=== PATIENT | female | born 1960 | race Caucasian/White ===

== ENCOUNTER 2018-04-23 02:28 | Inpatient (IN) | payer BC ==
[~2018-04-23] VITALS: Ht 165.1 cm; Wt 73.5 kg
[2018-04-23] VITALS (12 sets, daily range): BP systolic 158–184; BP diastolic 84–109; Ht 165.1 cm; Wt 73.5 kg
[2018-04-23] MEDS ORDERED: BACL-1 PO ×2 (02:35→05:37)
[2018-04-23] MEDS ORDERED: CELE-1 PO (02:36)
[2018-04-23] MEDS ORDERED: GABA-506 PO (02:36)
--- NOTE | 2018-04-23 02:36 | ER Report ---
History and Physical Time Seen By MD: 02:31 HPI/ROS CHIEF COMPLAINT: Altered mental status, suspected medication overdose HISTORY OF PRESENT ILLNESS: Patient is a 57-year-old female here with complaints of altered mental status after being found by patient's in a truck cab. suspects that the patient overdosed on her medications which include baclofen, gabapentin, celecoxib which she takes due to an old neck injury. Medications were last filled Patient is not interactive, is disoriented and does not answer questions. She does have dried blood around her lips and was suspected to have bitten herself. Patient reportedly had a similar episode occur several months ago. Patient is foul-smelling, unkempt with poor hygiene. REVIEW OF SYSTEMS: Not able to obtain due to patient's mental status Allergies: Coded Allergies: No Known Drug Allergies (Unverified , 04/23/18) Home Meds Reported Medications Baclofen (BACLOFEN) 10 Mg Tablet, 5 MG PO TID, #15 TAB 04/23/18 Celecoxib (CELEBREX) 200 Mg Capsule, 200 MG PO QDAY, CAPSULE 04/23/18 Gabapentin (GABAPENTIN) 800 Mg Tablet, 800 MG PO TID 04/23/18 Discontinued Reported Medications Baclofen (BACLOFEN) 10 Mg Tablet, 10 MG PO TID, #30 TAB 04/23/18 Constitutional Vital Sign - Last 24 Hours 04/23/18 04/23/18 04/23/18 04/23/18 02:31 02:43 03:13 03:18 Temp 98.8 Pulse 117 111 123 B/P (MAP) 145/66 177/101 (126) Pulse Ox 90 91 96 O2 Delivery Room Air 04/23/18 04/23/18 04/23/18 05:28 06:02 06:23 Pulse 100 92 103 B/P (MAP) 180/101 (127) 173/103 (126) 172/98 (122) Pulse Ox 99 99 98 O2 Delivery Nasal Cannula Nasal Cannula Nasal Cannula Physical Exam General Appearance: Confused, disoriented, poor hygiene, foul-smelling Eyes: Dilated, responsive ENT, Mouth: Dry blood surrounding mouth Respiratory: There are no retractions, lungs are clear to auscultation. Cardiovascular: Regular rate and rhythm. Gastrointestinal: Abdomen is soft and non tender, no masses, bowel sounds normal. Neurological: Confused, disoriented, moving all extremities Skin: Warm and dry, no rashes. Musculoskeletal: Neck is supple DIFFERENTIAL DIAGNOSIS: After history and physical exam differential diagnosis was considered for medication overdose, hypoxia, trauma, intracranial bleed, electrolyte imbalance, hyperammonemia Medical Decision Making Data Points Result Diagram: 04/25/18 0540 04/25/18 0540 Laboratory Hematology Test 04/23/18 02:45 04/23/18 02:52 04/23/18 04:19 Blood Gas Puncture Site Left radial Blood Gas Patient Temperature 98.8 DEGREES Arterial Blood pH 7.46 (7.35-7.45) Arterial Blood Partial Pressure CO2 38 mmHg (32-37) Arterial Blood Partial Pressure O2 160 mmHg (60-80) Arterial Blood HCO3 27 mmol/L (20-26) Arterial Blood Oxygen Saturation 100 % (92-100) Arterial Blood Base Excess 3.0 mmol/L Anton Test Acceptable Carboxyhemoglobin 1.6 % (< 5.0) Oxygen Liters/Minute 4l ra Ammonia < 9 UMOL/L (9-33) Thyroid Stimulating Hormone (TSH) 0.53 uIU/ml (0.46-4.68) Salicylates Level < 10 mg/L Salicylate Last Dose Date unknown Acetaminophen Level < 10 ug/ml Serum Alcohol < 10 mg/dl Whole Blood Glucose 163 mg/DL (75-110) Urine Color Yellow Urine Clarity Clear Urine pH 6.0 pH (4.8-9.5) Urine Specific [place] 1.023 Urine Protein 100 mg/dL (NEGATIVE) Urine Glucose (UA) 50 mg/dL (NEGATIVE) Urine Ketones Negative mg/dL (NEGATIVE) Urine Blood Moderate (NEGATIVE) Urine Nitrite Negative (NEGATIVE) Urine Bilirubin Negative (NEGATIVE) Urine Urobilinogen Negative mg/dL (0.2-1.9) Urine Leukocyte Esterase Negative (NEGATIVE) Urine RBC 12 /HPF (0-2/HPF) Urine WBC 4 /HPF (0-5/HPF) Urine Squamous Epithelial Cells Few /LPF (NONE-FEW) Urine Bacteria Negative /HPF (NONE-FEW) Urine Mucus None /HPF (NONE-FEW) Urine Opiates Screen Negative Urine Barbiturates Screen Negative Ur Tricyclic Antidepressants Screen Negative Urine Phencyclidine Screen Negative Urine Amphetamines Screen Negative Urine Benzodiazepines Screen Negative Urine Cocaine Screen Negative Urine Cannabinoids Screen Negative Chemistry Test 04/23/18 02:45 04/23/18 02:52 04/23/18 04:19 Blood Gas Puncture Site Left radial Blood Gas Patient Temperature 98.8 DEGREES Arterial Blood pH 7.46 (7.35-7.45) Arterial Blood Partial Pressure CO2 38 mmHg (32-37) Arterial Blood Partial Pressure O2 160 mmHg (60-80) Arterial Blood HCO3 27 mmol/L (20-26) Arterial Blood Oxygen Saturation 100 % (92-100) Arterial Blood Base Excess 3.0 mmol/L Anton Test Acceptable Carboxyhemoglobin 1.6 % (< 5.0) Oxygen Liters/Minute 4l ra Ammonia < 9 UMOL/L (9-33) Thyroid Stimulating Hormone (TSH) 0.53 uIU/ml (0.46-4.68) Salicylates Level < 10 mg/L Salicylate Last Dose Date unknown Acetaminophen Level < 10 ug/ml Serum Alcohol < 10 mg/dl Whole Blood Glucose 163 mg/DL (75-110) Urine Color Yellow Urine Clarity Clear Urine pH 6.0 pH (4.8-9.5) Urine Specific [place] 1.023 Urine Protein 100 mg/dL (NEGATIVE) Urine Glucose (UA) 50 mg/dL (NEGATIVE) Urine Ketones Negative mg/dL (NEGATIVE) Urine Blood Moderate (NEGATIVE) Urine Nitrite Negative (NEGATIVE) Urine Bilirubin Negative (NEGATIVE) Urine Urobilinogen Negative mg/dL (0.2-1.9) Urine Leukocyte Esterase Negative (NEGATIVE) Urine RBC 12 /HPF (0-2/HPF) Urine WBC 4 /HPF (0-5/HPF) Urine Squamous Epithelial Cells Few /LPF (NONE-FEW) Urine Bacteria Negative /HPF (NONE-FEW) Urine Mucus None /HPF (NONE-FEW) Urine Opiates Screen Negative Urine Barbiturates Screen Negative Ur Tricyclic Antidepressants Screen Negative Urine Phencyclidine Screen Negative Urine Amphetamines Screen Negative Urine Benzodiazepines Screen Negative Urine Cocaine Screen Negative Urine Cannabinoids Screen Negative Toxicology Test 04/23/18 02:45 04/23/18 04:19 Salicylates Level < 10 mg/L Salicylate Last Dose Date unknown Acetaminophen Level < 10 ug/ml Serum Alcohol < 10 mg/dl Urine Opiates Screen Negative Urine Barbiturates Screen Negative Ur Tricyclic Antidepressants Screen Negative Urine Phencyclidine Screen Negative Urine Amphetamines Screen Negative Urine Benzodiazepines Screen Negative Urine Cocaine Screen Negative Urine Cannabinoids Screen Negative Urinalysis Test 04/23/18 04:19 Urine Color Yellow Urine Clarity Clear Urine pH 6.0 pH (4.8-9.5) Urine Specific [place] 1.023 Urine Protein 100 mg/dL (NEGATIVE) Urine Glucose (UA) 50 mg/dL (NEGATIVE) Urine Ketones Negative mg/dL (NEGATIVE) Urine Blood Moderate (NEGATIVE) Urine Nitrite Negative (NEGATIVE) Urine Bilirubin Negative (NEGATIVE) Urine Urobilinogen Negative mg/dL (0.2-1.9) Urine Leukocyte Esterase Negative (NEGATIVE) Urine RBC 12 /HPF (0-2/HPF) Urine WBC 4 /HPF (0-5/HPF) Urine Squamous Epithelial Cells Few /LPF (NONE-FEW) Urine Bacteria Negative /HPF (NONE-FEW) Urine Mucus None /HPF (NONE-FEW) EKG/Imaging Imaging HEAD W/O CONTRAST EXAMINATION: CT head/brain without contrast HISTORY: Altered mental status. TECHNIQUE: Contiguous axial images were obtained from the skull base to the vertex without intravenous contrast. One of the following dose optimization techniques was utilized in the performance of this exam: Automated exposure control; adjustment of the mA and/ or kV according to the patient's size; or use of an iterative reconstruction technique. Specific details can be referenced in the facility's radiology CT exam operational policy. COMPARISON STUDIES: None FINDINGS: Ventricles/sulci/fissures: Negative Masses/hemorrhage/midline shift: Negative White matter: Negative Moses-white differentiation: Negative Extra-axial spaces: Negative Dural venous sinuses/arterial structures: Negative Skull base/calvarium: Negative Visualized mastoid air cells/paranasal sinuses: Negative IMPRESSION: 1. Normal CT scan of the head CT of the cervical spine without contrast: Indication: Altered mental status. Technique: Helical CT was performed through the cervical spine without contrast. Axial, coronal, and sagittal reconstructions are reviewed. One of the following dose optimization techniques was utilized in the performance of this exam: Automated exposure control; adjustment of the mA and/ or kV according to the patient's size; or use of an iterative reconstruction technique. Specific details can be referenced in the facility's radiology CT exam operational policy. Comparison: None. Findings: Anterior fusion hardware at C5, C6, and C7 appears intact and unremarkable. There is solid fusion of the C5, C6, and C7 vertebral bodies. There is mild/moderate degenerative disc disease and facet arthropathy at C2-C3 , C3-C4, and C4-C5. There is no evidence of fracture, compression, subluxation, or other acute deformity. There is uniform mineralization. The skeletal structures are otherwise unremarkable. No paraspinal soft tissue abnormalities are identified. IMPRESSION: Unremarkable postoperative changes in the lower cervical spine. Mild /moderate degenerative changes in the upper cervical spine. No evidence of fracture or acute deformity. CHEST SINGLE AP Additional pertinent History: Overdose COMPARISON STUDIES: none FINDINGS: Support lines and catheters: None Lungs and Pleura: Lung sena well expanded with no infiltrates or consolidations.. There are no effusions 8mm ill-defined lesion projecting between the posterior sixth and seventh ribs. . Questionable Heart and vasculature: Negative. Hope and Mediastinum: Negative. Bones and Chest wall: Negative. Upper Abdomen: Negative. IMPRESSION: 1. Negative chest for acute cardiopulmonary disease. Questionable 8 mm nodule in the right lung. Recommend comparison to previous films if available. If no films are available, recommend CT scan for complete evaluation. ED Course/Re-evaluation ED Course Patient is a 57-year-old female here with suspected baclofen overdose. Patient was found in her 's truck's bunk Altered, not following instructions, disoriented. Reportedly similar episodes that occurred in the past. Initially the patient received ketamine bolus for sedation and then fluid resuscitation after CT imaging was unremarkable. Narcan was given without significant improvement of symptoms. I discussed the patient with the [facility] regarding baclofen overdose. I discussed the patient with the hospitalist and admitted her for altered mental status. Patient remained stable under my care. Decision to Disposition Date: Apr 23, 2018 Decision to Disposition Time: 06:43 Depart Departure Latest Vital Signs Vital Signs Date Time Temp Pulse Resp B/P (MAP) Pulse Ox O2 Delivery O2 Flow Rate FiO2 04/23/18 06:23 103 172/98 (122) 98 Nasal Cannula 04/23/18 02:31 98.8 Impression: Primary Impression: Altered mental status Condition: Improved Disposition: Admitted from ER EVELYN COULTER DO Apr 23, 2018 02:36
--- NOTE | 2018-04-23 02:48 | EKG ---
FACILITY: [facility] - [place] PATIENT NAME: KAITY MULLINS : [id number] MR: [id number] V: [id number] EXAM DATE: ORDERING PHYSICIAN: EVELYN COULTER TECHNOLOGIST: RAH Test Reason : OD Blood Pressure : / mmHG Vent. Rate : 109 BPM Atrial Rate : 109 BPM P-R Int : 130 ms QRS Dur : 102 ms QT Int : 344 ms P-R-T Axes : 063 -41 049 degrees QTc Int : 463 ms Sinus tachycardia Possible Left atrial enlargement Left axis deviation Nonspecific ST and T wave abnormality R wave progression consistent with an old ant/sep PA vs lead placement No previous ECGs available Confirmed by ASHLEY YANCEY ([id number]) on 04/23/2018 4:47:27 AM Referred By: Confirmed By:ASHLEY YANCEY
[2018-04-23] MEDS ORDERED: KETAMINE HCL 500 MG/5 ML VIAL IVP ONE (02:55)
[2018-04-23 03:37] LABS: PLATELET COUNT, AUTOMATED 286 K/uL (150-450)
[2018-04-23] MEDS ORDERED: NS(*) 0.9% 1000 ML BAG 1,000 ML IV ONE (04:20)
[2018-04-23] MEDS ORDERED: NALOXONE HCL 2 MG/2 ML SYR IVP ONE (04:20)
[2018-04-23] MEDS ORDERED: POTASSIUM CHL 20 MEQ TABCR PO SCH (04:40)
--- NOTE | 2018-04-23 04:40 | RADIOLOGY IMAGING REPORT ---
FACILITY: [facility] PATIENT NAME: Rita Pitt : 1960 MR: [id number] V: [id number] EXAM DATE: ORDERING PHYSICIAN: EVELYN COULTER TECHNOLOGIST: Location: [facility] - [place] Patient: Rita Pitt : 1960 Visit/Account:[id number] Date of Sevice: 04/23/2018 CHEST SINGLE AP Additional pertinent History: Overdose COMPARISON STUDIES: none FINDINGS: Support lines and catheters: None Lungs and Pleura: Lung sena well expanded with no infiltrates or consolidations.. There are no eff usions 8mm ill-defined lesion projecting between the posterior sixth and seventh ribs. . Questionable Heart and vasculature: Negative. Hope and Mediastinum: Negative. Bones and Chest wall: Negative. Upper Abdomen: Negative. IMPRESSION: 1. Negative chest for acute cardiopulmonary disease. Questionable 8 mm nodule in the right lung. Ramon mmend comparison to previous films if available. If no films are available, recommend CT scan for com plete evaluation. Report Dictated By: Tevin Vazquez MD at 04/23/2018 4:34 AM Report E-Signed By: Tevin Vazquez MD at 04/23/2018 4:37 AM WSN:[id number]
--- NOTE | 2018-04-23 04:42 | RADIOLOGY IMAGING REPORT ---
FACILITY: [facility] [place] PATIENT NAME: Rita Pitt : 1960 MR: [id number] V: [id number] EXAM DATE: ORDERING PHYSICIAN: EVELYN COULTER TECHNOLOGIST: Location: [facility] Patient: Rita Pitt : 1960 Visit/Account:[id number] Date of Sevice: 04/23/2018 HEAD W/O CONTRAST EXAMINATION: CT head/brain without contrast HISTORY: Altered mental status. TECHNIQUE: Contiguous axial images were obtained from the skull base to the vertex without intravenou s contrast. One of the following dose optimization techniques was utilized in the performance of this exam: Autom ated exposure control; adjustment of the mA and/or kV according to the patient's size; or use of an i terative reconstruction technique. Specific details can be referenced in the facility's radiology C T exam operational policy. COMPARISON STUDIES: None FINDINGS: Ventricles/sulci/fissures: Negative Masses/hemorrhage/midline shift: Negative White matter: Negative Moses-white differentiation: Negative Extra-axial spaces: Negative Dural venous sinuses/arterial structures: Negative Skull base/calvarium: Negative Visualized mastoid air cells/paranasal sinuses: Negative IMPRESSION: 1. Normal CT scan of the head Report Dictated By: Tevin Vazquez MD at 04/23/2018 4:31 AM Report E-Signed By: Tevin Vazquez MD at 04/23/2018 4:38 AM WSN:[id number]
--- NOTE | 2018-04-23 04:42 | RADIOLOGY IMAGING REPORT ---
FACILITY: [facility] - [place] PATIENT NAME: Rita Pitt : 1960 MR: [id number] V: [id number] EXAM DATE: ORDERING PHYSICIAN: EVELYN COULTER TECHNOLOGIST: Location: [facility] [place] Patient: Rita Pitt : 1960 Visit/Account:[id number] Date of Sevice: 04/23/2018 CT of the cervical spine without contrast: Indication: Altered mental status. Technique: Helical CT was performed through the cervical spine without contrast. Axial, coronal, and sagittal reconstructions are reviewed. One of the following dose optimization techniques was utilized in the performance of this exam: Autom ated exposure control; adjustment of the mA and/or kV according to the patient's size; or use of an i terative reconstruction technique. Specific details can be referenced in the facility's radiology CT exam operational policy. Comparison: None. Findings: Anterior fusion hardware at C5, C6, and C7 appears intact and unremarkable. There is solid fusion of the C5, C6, and C7 vertebral bodies. There is mild/moderate degenerative disc disease and f acet arthropathy at C2-C3, C3-C4, and C4-C5. There is no evidence of fracture, compression, subluxati on, or other acute deformity. There is uniform mineralization. The skeletal structures are otherwise unremarkable. No paraspinal soft tissue abnormalities are identified. IMPRESSION: Unremarkable postoperative changes in the lower cervical spine. Mild/moderate degenerativ e changes in the upper cervical spine. No evidence of fracture or acute deformity. Report Dictated By: Lester Stover MD at 04/23/2018 4:33 AM Report E-Signed By: Lester Stover MD at 04/23/2018 4:38 AM WSN:[id number]
[2018-04-23] MEDS ORDERED: POTASSIUM CHL PWDR 20 MEQ PKT PO ONE (04:50)
[2018-04-23] MEDS ORDERED: NS(*) 0.9% 1000 ML BAG 1,000 ML IV PRN (06:27)
[2018-04-23] MEDS ORDERED: METOPROLOL TART 5 MG/5 ML VIAL IVP PRN (06:30)
[2018-04-23] MEDS ORDERED: INFLUENZA VIRUS VAC 0.5 ML SYR IM ONLY ONE (06:30)
--- NOTE | 2018-04-23 07:46 | History & Physical ---
History of Present Illness History of Present Illness 57yo female with chronic neck pain who was brought in for AMS. The history of is from the ER physician. The patient's called EMS from [facility] because the patient wouldn't wake up after he found her in the truck cab. He did not come with her to the ER and there is no contact information for him. She is chronically on gabapentin, baclofen and Celebrex for neck pain. She was found in the cab of the truck very somnolent. She reportedly had a similar event a couple months ago. In the ER, she, initially, would only open her eyes, but wasn't conversant. She received Narcan without affect. She was hydrated and given oral potassium. At the time of my exam, she could answer yes/no/maybe. She denied any pain/sob/n/v/dizziness/diplopia/blurry vision. She denied any intent to harm herself. History Problems: (1) Chronic neck pain Status: Chronic Home Meds Reported Medications Baclofen (BACLOFEN) 10 Mg Tablet, 5 MG PO TID, #15 TAB 04/23/18 Celecoxib (CELEBREX) 200 Mg Capsule, 200 MG PO QDAY, CAPSULE 04/23/18 Gabapentin (GABAPENTIN) 800 Mg Tablet, 800 MG PO TID 04/23/18 Discontinued Reported Medications Baclofen (BACLOFEN) 10 Mg Tablet, 10 MG PO TID, #30 TAB 04/23/18 Allergies: Coded Allergies: No Known Drug Allergies (Unverified , 04/23/18) Other Social/Family Hx Unable to obtain. Review of Systems All Systems Reviewed/Normal: Yes, Except as Noted (She is limited in giving any history) Exam Vital Signs Vital Signs Date Time Temp Pulse Resp B/P (MAP) Pulse Ox O2 Delivery O2 Flow Rate FiO2 04/23/18 07:05 98 Nasal Cannula 1.0 04/23/18 07:05 90 04/23/18 07:01 98.8 22 165/88 (113) General Appearance: Alert, Awake, No Acute Distress, Other (Disheveled in appearance) Neuro: No Gross deficits, Other (She only answers yes/no/maybe. She tries to give a more detailed answer at times, but doesn't have the words for it. Following commands and moving all extremities equally. No facial droop) Eyes: PERRLA ENT: Moist Mucous Membranes Cardiovascular: Other (tachy, regular, 2/6 systolic murmur) Respiratory: Clear to Auscultation GI: Abd Soft and Non-Tender Extremities: No Edema Integumentary: Other (Abrasion on left cheek extending down to left side of neck. Some dried blood on the lips, but no obvious sores in the mouth.) Medical Decision Making Data Points Result Diagram: 04/23/18 02404/23/18244 Item Value Date Time Troponin I 0.051 ng/ml 04/23/18 0512 Lactate 2.8 mmol/L H 04/23/18 0407 Magnesium Level 2.1 mg/dl 04/23/18244 Calcium Level 9.9 mg/dl 04/23/18 024 Ammonia < 9 UMOL/L L 04/23/18 024 Troponin I 0.047 ng/ml 04/23/18 024 Total Protein 7.4 g/dl 04/23/18 024 Albumin 4.5 g/dl 04/23/18 024 Total Bilirubin 0.7 mg/dl 04/23/18 0245 Aspartate Amino Transf (AST/SGOT) 105 U/L H 04/23/18 024 Alanine Aminotransferase (ALT/SGPT) 49 U/L 04/23/18 024 Alkaline Phosphatase 66 U/L 04/23/18 024 Random Glucose 161 mg/dl H 04/23/18 0245 Neutrophils (%) (Auto) 73.0 % H 04/23/18 024 Lymphocytes (%) (Auto) 18.3 % 04/23/18 024 Monocytes (%) (Auto) 8.4 % 04/23/18 024 Eosinophils (%) (Auto) 0.0 % L 04/23/18 024 Arterial Blood pH 7.46 H 04/23/18 024 Arterial Blood Partial Pressure CO2 38 mmHg H 04/23/18 0245 Arterial Blood Partial Pressure O2 160 mmHg *H 04/23/18 0245 Arterial Blood HCO3 27 mmol/L H 04/23/18 024 Arterial Blood Oxygen Saturation 100 % 04/23/18 024 Urine Glucose (UA) 50 mg/dL H 04/23/18 0419 Urine Blood Moderate 04/23/18 0419 Urine RBC 12 /HPF 04/23/18 0419 Urine WBC 4 /HPF 04/23/18418 Urine Squamous Epithelial Cells Few /LPF 04/23/18418 Urine Bacteria Negative /HPF 04/23/18418 Urine Mucus None /HPF 04/23/18418 Serum Alcohol < 10 mg/dl 04/23/18244 Acetaminophen Level < 10 ug/ml 04/23/18244 Salicylates Level < 10 mg/L 04/23/18244 Urine Opiates Screen Negative 04/23/18418 Urine Barbiturates Screen Negative 04/23/18418 Ur Tricyclic Antidepressants Screen Negative 04/23/18418 Urine Phencyclidine Screen Negative 04/23/18418 Urine Amphetamines Screen Negative 04/23/18418 Urine Benzodiazepines Screen Negative 04/23/18418 Urine Cocaine Screen Negative 04/23/18418 Urine Cannabinoids Screen Negative 04/23/18418 EKG / Imaging EKG Interpretation Vent. Rate : 109 BPM Atrial Rate : 109 BPM P-R Int : 130 ms QRS Dur : 102 ms QT Int : 344 ms P-R-T Axes : 063 -41 049 degrees QTc Int : 463 ms Sinus tachycardia Possible Left atrial enlargement Left axis deviation Nonspecific ST and T wave abnormality R wave progression consistent with an old ant/sep ND vs lead placement No previous ECGs available Confirmed by ASHLEY YANCEY ([id number]) on 04/23/2018 4:47:27 AM Imaging C Spine CT - Unremarkable postoperative changes in the lower cervical spine. Mild/moderate degenerative changes in the upper cervical spine. No evidence of fracture or acute deformity. CXR - 1. Negative chest for acute cardiopulmonary disease. Questionable 8 mm nodule in the right lung. Recommend comparison to previous films if available. If no films are available, recommend CT scan for complete evaluation. Head CT - 1. Normal CT scan of the head Assessment and Plan Problems: (1) Altered mental status Status: Acute Assessment & Plan: She presented with somnolence. Her was unable to wake her up in the truck cab. She has had a similar episode to this a few months ago. All of her Baclofen had been taken, while her Gabapentin and Celebrex appeared to have about 9 more days of medications. They were all filled at the same time 04/01. Her mental status has improved over time in the ER. She is now sitting up and is awake. However, she can only answer yes/no/ maybe. She will be admitted to the ICU with seizure precautions. She is not hypotensive or bradycardic. Her ECG has a normal QTc duration. Will repeat ECG and watch on telemetry. (2) HTN (hypertension) Status: Acute Assessment & Plan: BP is elevated. Likely, related to ingestion, but could be baseline. She was tachycardic on admission but that is improving. Will give metoprolol prn. (3) Hypernatremia Status: Acute Assessment & Plan: Likely related to dehydration. She is getting NS. Will recheck labs. (4) Elevated troponin Status: Acute Assessment & Plan: Her troponin is the haas zone of unclear significance. There are no ST abnormalities on ECG and she denies CP. Will recheck troponin and follow on telemetry. (5) Abnormal x-ray of lungs with single pulmonary nodule Status: Acute Assessment & Plan: Questionable 8mm nodule in the right lung. She will need to have a follow up CXR with comparison as an outpatient. She can be discharged with a disk containing today's CXR. (6) Chronic neck pain Status: Chronic Assessment & Plan: She chronically takes Baclofen, Gabapentin and Celebrex. All of those will be held until her mental status improves more. Venous Thromboembolism Antithrombotics Is Pt On Any Antithrombotics?: No Exam Sepsis Risk: No Definite Risk ASHLEY YANCEY MD Apr 23, 2018 07:46
[2018-04-23] MEDS: NS(*) 0.9% 1000 ML BAG 1,000 ML IV PRN (08:07)
--- NOTE | 2018-04-23 08:10 | EKG ---
FACILITY: [facility] PATIENT NAME: KAITY MULLINS : [id number] MR: [id number] V: [id number] EXAM DATE: ORDERING PHYSICIAN: ASHLEY YANCEY TECHNOLOGIST: KAMALA Test Reason : OD Blood Pressure : / mmHG Vent. Rate : 091 BPM Atrial Rate : 091 BPM P-R Int : 128 ms QRS Dur : 094 ms QT Int : 384 ms P-R-T Axes : 060 -08 048 degrees QTc Int : 472 ms Normal sinus rhythm Nonspecific ST abnormality Abnormal ECG When compared with ECG of 23-APR-2018 02:37, No significant change was found Referred By: NAYE Confirmed By:
[2018-04-23 10:15] LABS: PLATELET COUNT, AUTOMATED 228 K/uL (150-450)
[2018-04-23] MEDS ORDERED: ESCITALOPRAM OXALATE 10 MG TAB PO SCH (14:40)
[2018-04-23] MEDS ORDERED: ONDANSETRON 4 MG/2 ML VIAL IVP PRN (18:40)
[2018-04-23] MEDS ORDERED: ACETAMINOPHEN 500 MG TAB PO PRN (22:05)
[2018-04-23] MEDS ORDERED: IBUPROFEN 600 MG TAB PO PRN (22:05)
[2018-04-24] MEDS: NS(*) 0.9% 1000 ML BAG 1,000 ML IV PRN (00:25)
[2018-04-24 02:45] VITALS: BP 160/84
[2018-04-24] MEDS: LORazepam 2 MG/ML VIAL IVP PRN ×4 (02:58→20:13)
[2018-04-24 06:04] LABS: PLATELET COUNT, AUTOMATED 231 K/uL (150-450)
[2018-04-24] MEDS ORDERED: NS(*) 0.9% 1000 ML BAG 1,000 ML IV PRN ×2 (06:22→06:36)
[2018-04-24 07:28] VITALS: BP 149/80
[2018-04-24] MEDS: GABAPENTIN 300 MG CAP PO SCH ×4 (09:43→20:17)
[2018-04-24] MEDS: BACLOFEN 10 MG TAB PO SCH ×2 (09:43→20:17)
[2018-04-24] MEDS: NEOMYCIN/POLYMYX/BACITR OINT 1 PACKET TP SCH ×2 (09:44→20:17)
[2018-04-24] MEDS ORDERED: POTASSIUM CHL 20 MEQ TABCR PO ONE (11:05)
--- NOTE | 2018-04-24 11:15 | Hospitalist Progress Note ---
Subjective Progress Notes Subjective Patient was admitted with altered mental status. Patient has been having hallucinations overnight. Patient Complains of: Cardiovascular: No: Chest Pain Respiratory: No: Shortness of Breath Physical Exam Vital Signs Date Time Temp Pulse Resp B/P (MAP) Pulse Ox O2 Delivery O2 Flow Rate FiO2 04/24/18 07:29 74 04/24/18 07:28 97.9 14 149/80 (103) 95 Room Air 04/23/18 15:33 1.0 Intake and Output 04/25/18 01:00 Intake Total 720 ml Balance 720 ml Intake Oral 720 ml # Voids 1 General Appearance: Alert, Awake, No Acute Distress Cardiovascular: Regular Rate and Rhythm Respiratory: No Respiratory Distress, Clear to Auscultation GI: Soft and Non-Tender Integumentary: Other (facial abrasions scabbed, blisters noted to bilateral feet, hand have abrasions also) Psych: Alert & Oriented X3, Appropriate Mood & Affect Result Diagram: 04/24/18 0535 04/24/18 0535 Assessment and Plan Problems: (1) Altered mental status Status: Acute Assessment & Plan: She presented with somnolence. Her was unable to wake her up in the truck cab. She has had a similar episode to this a few months ago. All of her Baclofen had been taken, while her Gabapentin and Celebrex appeared to have about 9 more days of medications. They were all filled at the same time 04/01. Her mental status has improved over time in the ER. However, she was only answer yes/no/maybe upon admission. It is believed she possibly had a seizure. We will order EEG today. She will be restarted on her Gabapentin and Baclofen which can lower seizure threshold. (2) HTN (hypertension) Status: Acute Assessment & Plan: BP is elevated. Likely, related to ingestion, but could be baseline. She was tachycardic on admission but has improved. Will give metoprolol prn. (3) Hypernatremia Status: Acute Assessment & Plan: Resolved. Likely related to dehydration. She received NS. (4) Elevated troponin Status: Acute Assessment & Plan: Her troponin was in the haas zone of unclear significance. There are no ST abnormalities on ECG and she denies CP. Troponin was repeated and decreased in value from previous. Telemetry has been monitored. (5) Abnormal x-ray of lungs with single pulmonary nodule Status: Acute Assessment & Plan: Questionable 8mm nodule in the right lung. She will need to have a follow up CXR with comparison as an outpatient. She can be discharged with a disk containing her CXR. (6) Chronic neck pain Status: Chronic Assessment & Plan: She chronically takes Baclofen, Gabapentin and Celebrex. She has been restarted on Baclofen and Gabapentin today. Exam Sepsis Risk: No Definite Risk ASYA TELLO TEXTILE TECHNOLOGIST Apr 24, 2018 11:15
--- NOTE | 2018-04-24 15:14 | SPEECH INITIAL EVALUATION ---
SPEECH THERAPY metalworking specialist: Jacqueline Hernández MS, CCC-SPEEDER OPERATOR Type of Assessment: Cognitive Linguistic Assessment Patient: Rita Pitt : 1960, 57yrs Evaluation Date: 04/24/2018 BACKGROUND The patient is a 57 year old female admitted med/surg with AMS and following a seizure possibley related to medication overdose. An ST evaluation was warranted to analyze cognitive linguistic status to determine pt safety and independence to assist with release and care. Primary Medical Diagnosis: AMS, Seizure Pain Scale (0-10): Pt denies pain LOC / Participation: alert, pleasant, cooperative. Follows instructions: yes Orientation: A&O x4. VOICE/ SPEECH Motor Speech: mildly apraxic Voice: Hoarse COGNITION/COMMUNICATION Pt was seen at bedside for cognitive linguistic assessment using the Sanket Cognitive Assessment (MOCA) and informal evaluation procedures. Pt obtained a 21/30 on the MOCA,consistent with a severity level of mild cognitive impairment (WNL=26/30). Deficits are primarily noted during executive function tasks ( clock drawing), visuospatial tasks, delayed recall, and language. Demonstrated potential for new learning across repeated practice was limited. Pt appeared to understand the instructions for tasks but was not able to complete them successfully given repeated opportunities. Mild speech and language deficits are present including motor speech deficits and decreased sentence repetition, generative and confrontation naming. Relative areas of strength are noted during activities requiring attention and orientation. The patient did not demonstrate impulsivity during the evaluation. She is aware of errors, though denies cognitive-linguistic changes overall. During informal/interview evaluation, the pt provided information related to safety at home/work and in the community, independently including: fall prevention, fire safety, and emergency response. She reports her does all the driving. She reported she was taking medication prior to hospitalization but was not able to provide names or purpose. She appears to be clear about her hospitalization course, medical diagnoses, and plan of care. When asked why she was in the hospital she responded "because I tried to hurt myself." NRSG reports she has denied this up until now. She demonstrates appropriate humor and social interaction. SUMMARY Pt presents with mild cognitive linguistic deficits. Most severe deficits are with executive functioning with pt demonstrating decrease in fluid cognitive ability for functional problem solving, logical reasoning/interpretation, and pattern identification. Denial of deficits are also present. Overall, results of the evaluation indicate the patient is not yet safe for return to prior living situation as far as functional cognitive abilities are concerned. She would benefit from cognitive linguistic therapy to address above described deficits and possibly further assessment from [facility]. Results indicate the patient may demonstrate difficulty participating in the following IADL tasks: Problem solving in novel situations -Functional verbal communication of needs /wants -Recall and management of changes to medication/appointments without assistance. -Completing tasks with complex instructions RECOMMENDATION ST 3/wk to address above described cog/ling deficits POC STG Pt will demonstrate indep management of medication/appointment management with use of external strategies. Pt will demonstrate indep recall of medication prescriptions including name and purpose. Pt will demonstrate indep with following complex instructions to assist with self care and problem solving Pt will verbally communicate complex personal/medical information LTG Pt will demonstrate independence with cognitive-linguistic tasks and return to PLOF Thank you for this referral. Please call [phone] (outpatient rehab) or [phone] ( inpatient rehab) to contact the SPEEDER OPERATOR. Respectfully, Jacqueline Hernández M.S., CCC-SPEEDER OPERATOR [place]
[2018-04-24 16:22] VITALS: BP 171/97
[2018-04-24] MEDS: THIAMINE HCL 100 MG TAB PO SCH (18:47)
[2018-04-24] MEDS: FOLIC ACID 1 MG TAB PO SCH (18:47)
[2018-04-24 19:13] VITALS: BP 156/84
[2018-04-24 19:41] VITALS: BP 157/101
[2018-04-24 23:30] VITALS: BP 145/91
[2018-04-25] MEDS: LORazepam 2 MG/ML VIAL IVP PRN ×2 (00:40→01:48)
[2018-04-25 01:43] VITALS: BP 153/87
[2018-04-25 06:10] VITALS: BP 159/89
[2018-04-25 06:17] LABS: PLATELET COUNT, AUTOMATED 228 K/uL (150-450)
[2018-04-25] MEDS: THIAMINE HCL 100 MG TAB PO SCH (08:36)
[2018-04-25] MEDS: GABAPENTIN 300 MG CAP PO SCH (08:36)
[2018-04-25] MEDS: NEOMYCIN/POLYMYX/BACITR OINT 1 PACKET TP SCH (08:36)
[2018-04-25] MEDS: FOLIC ACID 1 MG TAB PO SCH (08:36)
[2018-04-25] MEDS: BACLOFEN 10 MG TAB PO SCH (08:36)
[2018-04-25 08:42] VITALS: BP 176/91
--- NOTE | 2018-04-25 10:36 | Hospitalist Depart ---
Discharge Summary Reason for Hosp/Final Diag: (1) Psychosis Status: Acute Hospital Course & Plan: She has been having hallucinations during admission. She was placed on CIWA protocol and given Ativan, which has not helped her hallucinations. She will be transferred to [facility] unit for further evaluation. Dr. Mcgovern has accepted the patient. She does report a history of taking Abilify and Effexor, but currently reports no medications for psychiatric reasons. (2) Altered mental status Status: Acute Hospital Course & Plan: She presented with somnolence. Her was unable to wake her up in the truck cab. She has had a similar episode to this a few months ago. All of her Baclofen had been taken, while her Gabapentin and Celebrex appeared to have about 9 more days of medications. They were all filled at the same time 04/01. Her mental status has improved over time in the ER. However, she was only answer yes/no/maybe upon admission. It is believed she possibly had a seizure. EEG was completed. She was restarted on her Gabapentin and Baclofen 04/24. (3) HTN (hypertension) Status: Acute Hospital Course & Plan: BP has been elevated throughout admission. Likely it is her baseline. She was tachycardic on admission but has improved. (4) Hypernatremia Status: Acute Hospital Course & Plan: Resolved. Likely related to dehydration. She received NS. (5) Elevated troponin Status: Acute Hospital Course & Plan: Her troponin was in the haas zone of unclear significance. There are no ST abnormalities on ECG and she denies CP. Troponin was repeated and decreased in value from previous. Telemetry has been monitored. (6) Abnormal x-ray of lungs with single pulmonary nodule Status: Acute Hospital Course & Plan: Questionable 8mm nodule in the right lung. She will need to have a follow up CXR with comparison as an outpatient. She can be discharged with a disk containing her CXR. (7) Chronic neck pain Status: Chronic Hospital Course & Plan: She chronically takes Baclofen, Gabapentin and Celebrex. She has been restarted on Baclofen and Gabapentin today. Departure Latest Vital Signs Vital Signs 04/25/18 04/25/18 08:42 08:46 Temp 98.9 Pulse 82 Resp 20 B/P (MAP) 176/91 (119) Pulse Ox 96 O2 Delivery Nasal Cannula O2 Flow Rate 1.0 Weight (Pounds): 71 Weight (Ounces): 3.0 Result Diagram: 04/25/1853904/25/18539 Condition: Improved Discharge: [facility] Discharge Instructions Home Meds Reported Medications Baclofen (BACLOFEN) 10 Mg Tablet, 5 MG PO TID, #15 TAB 04/23/18 Celecoxib (CELEBREX) 200 Mg Capsule, 200 MG PO QDAY, CAPSULE 04/23/18 Gabapentin (GABAPENTIN) 800 Mg Tablet, 800 MG PO TID 04/23/18 Discontinued Reported Medications Baclofen (BACLOFEN) 10 Mg Tablet, 10 MG PO TID, #30 TAB 04/23/18 Diet: Regular Activity: As Tolerated Venous Thromboembolism Antithrombotics Is Pt On Any Antithrombotics?: No ASYA TELLO BEEF SPECIALIST Apr 25, 2018 10:36
== END 2018-04-25 11:15 | DRG 918 ==
LOC: EDSEX 02:28 → ER 02:36 → ICU 06:35 → MED 18:10
PROVIDERS: ADMIT Internal Medicine; ATTEND Internal Medicine
PROC: 0JDJ3ZZ Extraction of Right Hand Subcutaneous Tissue and Fascia, Percutaneous Approach (ICD-10-PCS; principal; 2018-04-24)
PROC: 0JDJ3ZZ Extraction of Right Hand Subcutaneous Tissue and Fascia, Percutaneous Approach (ICD-10-PCS; 2018-04-24)
PROC: 0JDJ3ZZ Extraction of Right Hand Subcutaneous Tissue and Fascia, Percutaneous Approach (ICD-10-PCS; 2018-04-24)
PROC: 0HDNXZZ Extraction of Left Foot Skin, External Approach (ICD-10-PCS; 2018-04-24)
DX: T42.8X2A Poisoning by antiparkinsonism drugs and other central muscle-tone depressants, intentional self-harm, initial encounter (principal); E87.0 Hyperosmolality and hypernatremia; R44.3 Hallucinations, unspecified; I10 Essential (primary) hypertension; S60.410A Abrasion of right index finger, initial encounter; S60.412A Abrasion of right middle finger, initial encounter; S90.812A Abrasion, left foot, initial encounter; S90.811A Abrasion, right foot, initial encounter; S00.81XA Abrasion of other part of head, initial encounter; G89.29 Other chronic pain; R91.1 Solitary pulmonary nodule; E86.0 Dehydration; Y92.812 Truck as the place of occurrence of the external cause
CPT/HCPCS: 36415; 36416; 36600; 70450; 71045; 72125; 80305; 80320; 80329; 81001; 82040; 82140; 82247; 82310; 82374; 82375; 82435; 82565; 82803; 82947; 82948; 83605; 83735; 84075; 84132; 84155; 84295; 84443; 84450; 84460; 84484; 84520; 85025; 93005; 95819; 96361; 96374; 96375; 97161; 97165; 99285; A4353; J2060; J2310; J2405; J7030

== ENCOUNTER → 2018-04-23 | Outpatient (CLI) | payer BC ==
[~2018-04-23] MED LIST: ACET500T68 PO; AMOX-559 PO; BACL-1 PO; BISA-229 PO; CELE-1 PO; ESCI20TA38 PO; FOLI-68 PO; GABA-506 PO; IBUP-1671 PO; MELA3TAB31 PO; MENT7.5L3 MM; NEOM1OIN6 TP; THIA100T2 PO
[2018-04-23 10:28] VITALS: BMI 11.8
== END ==
LOC: AMB 01:55
PROVIDERS: ATTEND Nurse Practitioner
DX: R41.82 Altered mental status, unspecified (principal)
CPT/HCPCS: A0425; A0427

== ENCOUNTER 2018-04-25 11:15 | Inpatient (IN) | payer BC ==
[2018-04-23 10:28] VITALS: BMI 11.8
[2018-04-25 11:10] VITALS: BP 132/74
[~2018-04-25 11:15] MED LIST changes: -ACET500T68 PO; -AMOX-559 PO; -BISA-229 PO; -ESCI20TA38 PO; -FOLI-68 PO; -IBUP-1671 PO; -MELA3TAB31 PO; -MENT7.5L3 MM; -NEOM1OIN6 TP; -THIA100T2 PO
[2018-04-25] MEDS: IBUPROFEN 600 MG TAB PO PRN ×2 (12:26→22:02)
[2018-04-25] MEDS: GABAPENTIN 300 MG CAP PO SCH ×3 (12:26→21:21)
[2018-04-25] MEDS: ACETAMINOPHEN 500 MG TAB PO PRN ×2 (14:23→22:02)
[2018-04-25 15:30] VITALS: BP 138/80
--- NOTE | 2018-04-25 16:10 | EKG ---
FACILITY: [facility] [place] PATIENT NAME: KAITY MULLINS : [id number] MR: [id number] V: [id number] EXAM DATE: ORDERING PHYSICIAN: MARA JUAREZ TECHNOLOGIST: Test Reason : Blood Pressure : / mmHG Vent. Rate : 069 BPM Atrial Rate : 069 BPM P-R Int : 140 ms QRS Dur : 104 ms QT Int : 408 ms P-R-T Axes : 048 -28 027 degrees QTc Int : 437 ms Normal sinus rhythm Left ventricular hypertrophy Abnormal ECG Leftward axis When compared with ECG of 23-APR-2018 06:46, No significant change was found Confirmed by Seth Frank ([id number]) on 04/25/2018 5:39:26 PM Referred By: LARRY Confirmed By:Seth Graves
[2018-04-25 20:40] VITALS: BP 158/98
[2018-04-25] MEDS: NEOMYCIN/POLYMYX/BACITR OINT 1 PACKET TP SCH (21:21)
[2018-04-25] MEDS: BACLOFEN 10 MG TAB PO SCH (21:22)
[2018-04-25] MEDS: MELATONIN 3 MG TAB PO SCH (21:22)
[2018-04-25] MEDS ORDERED: QUEtiapine FUM 25 MG TAB PO ONE (23:05)
[2018-04-26 06:10] VITALS: BP 136/82
[2018-04-26] MEDS: FOLIC ACID 1 MG TAB PO SCH (08:00)
[2018-04-26] MEDS: THIAMINE HCL 100 MG TAB PO SCH (08:00)
[2018-04-26] MEDS: BACLOFEN 10 MG TAB PO SCH (08:00)
[2018-04-26] MEDS: GABAPENTIN 300 MG CAP PO SCH ×3 (08:01→22:01)
[2018-04-26] MEDS: NEOMYCIN/POLYMYX/BACITR OINT 1 PACKET TP SCH ×2 (08:01→21:31)
[2018-04-26] MEDS: IBUPROFEN 600 MG TAB PO PRN ×2 (08:03→22:11)
[2018-04-26] MEDS: ACETAMINOPHEN 500 MG TAB PO PRN ×2 (08:04→22:11)
[2018-04-26 12:50] VITALS: BP 142/80
[2018-04-26] MEDS ORDERED: BISACODYL 5 MG TABEC PO PRN (14:00)
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
[2018-04-26 17:00] VITALS: BP 140/78
[2018-04-26] MEDS: MELATONIN 3 MG TAB PO SCH (21:31)
[2018-04-26] MEDS ORDERED: EUCALYPTUS/MENTHOL LOZ MM PRN (21:50)
[2018-04-27 05:35] VITALS: BP 135/69
[2018-04-27] MEDS: GABAPENTIN 300 MG CAP PO SCH ×3 (05:49→21:40)
[2018-04-27] MEDS: ACETAMINOPHEN 500 MG TAB PO PRN ×3 (05:57→23:15)
[2018-04-27 06:33] VITALS: BP 135/69
[2018-04-27] MEDS: CELECOXIB 200 MG CAP PO SCH (08:58)
[2018-04-27] MEDS: FOLIC ACID 1 MG TAB PO SCH (08:58)
[2018-04-27] MEDS: THIAMINE HCL 100 MG TAB PO SCH (08:58)
[2018-04-27] MEDS ORDERED: BACLOFEN 10 MG TAB PO SCH (09:00)
[2018-04-27] MEDS: NEOMYCIN/POLYMYX/BACITR OINT 1 PACKET TP SCH ×2 (09:00→21:40)
[2018-04-27] MEDS ORDERED: ESCITALOPRAM OXALATE 10 MG TAB PO ONE (11:40)
[2018-04-27 12:50] VITALS: BP 148/88
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
[2018-04-27] MEDS: AMOX/CLAV 875 MG TAB PO SCH (16:39)
[2018-04-27] MEDS: MELATONIN 3 MG TAB PO SCH (21:40)
--- NOTE | 2018-04-27 23:05 | BHS Progress Note ---
[facility] - Subjective Progress Notes Subjective Pt seen with staff. Pt denies any further hallucinations, she has been alert, cooperative, and well oriented. Her only complaint today is increased drainage from L heel blister, with a low grade temp last night of 100.6. Physical Therapy did wound care yesterday without evidence of infection as per their note. Dr. Linton was consulted and pt. placed on antibiotic. Today we discussed pt's history of depression and previous medication trials-- she would like to go back on Lexapro which had been helpful in the past, and after discharge she would like to follow up here in [place]. Will begin Lexapro 5 mg q am, and if well tolerated, and if pt without any further signs of delirium, will consider discharge tomorrow. Physical Therapy needs to see pt tomorrow r.e wound care-- pt will likely need to follow up with them on Saturday as out- patient. We discussed her CXR with 8 mm pulmonary nodule, and she understands that she needs to follow up after discharge with repeat CXR. Suicidal Ideation: None Homicidal Ideation: None [facility] - Objective Physical Exam Vital Signs Vital Signs 04/26/18 04/27/18 06:10 12:50 Temp 99.2 Pulse 69 Resp 16 B/P (MAP) 148/88 (108) Pulse Ox 96 O2 Delivery Room Air O2 Flow Rate 2.0 Muscle Strength and Tone: WNL Gait and Station: Steady [facility] Medications Reviewed: Side Effects, Benefits of Medication, Risks Allergies Reviewed: Yes Mental Status Exam General Appearance: Casual, Good Eye Contact, Cooperative, Polite Speech: Clear, Spontaneous, Normal Rate, Normal Rhythm, Normal Volume, Normal Tone Mood: Dysthmic/Depressed (mild) Affect: Full and Appropriate, Calm, Sad (at times) Thought Process: Organized, Logical, Goal Directed Thought Content: No Suicidal Ideation, No Homicidal Ideation, No Delusions, No Auditory Halllucinations, No Visual Hallucinations, No Thought Broadcasting, No Ideas of Reference, No Obsessions, No Compulsions, No Other Sensorium: Clear Cognition: Alert & Oriented-Person, Alert & Oriented-Place, Alert & Oriented- Time, [id number]-Bfytohwax Memory: Immediate, Recent, Remote Intelligence: Average Insight Judgment: Fair [facility] Assessment and Plan [id number] Encounter Date: Apr 27, 2018 [id number] Encounter Time: 11:00 [facility] Plan: Admit to Unit, Necessary Precautions, Individual/Group Therapy, Admin /Titrate Meds, Educate Patient Tobacco Medications: Not Appropriate Condition Problems: (1) Delirium due to general medical condition (2) Persistent depressive disorder (3) Open wound of heel Status: Acute (4) Pulmonary nodule Status: Acute Problem Qualifiers (1) Open wound of heel: Laterality: left ANYI HENRIQUEZ MD Apr 27, 2018 23:05
[2018-04-28] MEDS: GABAPENTIN 300 MG CAP PO SCH ×2 (06:00→14:18)
[2018-04-28 06:02] VITALS: BP 130/80
[2018-04-28] MEDS: IBUPROFEN 600 MG TAB PO PRN ×2 (06:49→14:40)
[2018-04-28] MEDS: NEOMYCIN/POLYMYX/BACITR OINT 1 PACKET TP SCH (07:54)
[2018-04-28] MEDS: CELECOXIB 200 MG CAP PO SCH (07:54)
[2018-04-28] MEDS: FOLIC ACID 1 MG TAB PO SCH (07:54)
[2018-04-28] MEDS: THIAMINE HCL 100 MG TAB PO SCH (07:54)
[2018-04-28] MEDS: AMOX/CLAV 875 MG TAB PO SCH ×2 (07:54→17:04)
[2018-04-28] MEDS ORDERED: ESCITALOPRAM OXALATE 10 MG TAB PO SCH (09:00)
--- NOTE | 2018-04-28 11:21 | SLP EVALUATION SUMMARY REPORT ---
SPEECH THERAPY supervisory air intercept controller: Mague Lizarraga MS, CCC-SENIOR FIELD SERVICE ENGINEER Type of Assessment: Cognitive Linguistic Assessment Patient: Rita Pitt : 1960, 57yrs Evaluation Date: 04/28/2018 BACKGROUND The patient is a 57 year old female initially admitted to the med/surg unit with AMS and following a seizure possibly related to medication overdose. An ST evaluation was completed on 04/24 to analyze cognitive linguistic status and determine pt safety and independence for assistance with d/c planning. At that time, the pt was demonstrating mild cognitive linguistic deficits with impairments in executive function, visuospatial skills, short-term recall, and language. The following day, the pt was transferred to [facility] due to delirium with associated hallucinations. The pt was seen today for a re-evaluation of cognitive linguistic status to determine potential improvements following psychiatric treatment. Primary Medical Diagnosis: Delirium due to general medical condition Pain Scale (0-10): Reporting pain on L heel. Not quantified. Nursing staff and PT aware for wound management LOC / Participation: alert, pleasant, cooperative Follows instructions: yes Orientation: A&O x4 VOICE/ SPEECH Motor Speech: WFL Voice: WFL COGNITION/COMMUNICATION Pt was seen at bedside for cognitive linguistic assessment using the Sanket Cognitive Assessment (MOCA) version 7.3 and informal evaluation procedures. Pt obtained a 30/30 on the MOCA (previous score: 21/30; 26/30 = WFL). During informal/interview evaluation, the pt appropriately and independently provided information related to safety at home/work and in the community, including fall prevention, fire safety, medication management, and emergency response. She was well-oriented to hospitalization course, medical diagnoses, and plan of care. She was also able to describe medication regimen. SUMMARY Cognitive-linguistic status appears WFL. Skilled ST services are not indicated at this time. Pt exhibits improvements in executive functioning, functional problem solving, logical reasoning, safety awareness, and acknowledgement of psychological difficulties. From a cognitive linguistic standpoint, results of the evaluation indicate the patient is safe for return to prior living situation. Thank you for this referral. Please call [phone] (outpatient rehab) or [phone] ( inpatient rehab) to contact the SENIOR FIELD SERVICE ENGINEER. Respectfully, Mague Lizarraga M.S., CCC-SENIOR FIELD SERVICE ENGINEER [*] [facility]
[2018-04-28] MEDS ORDERED: AMOX-559 PO (12:23)
[2018-04-28] MEDS ORDERED: FOLI-68 PO (12:24)
[2018-04-28] MEDS ORDERED: MELA3TAB31 PO (12:25)
[2018-04-28] MEDS ORDERED: ESCI20TA38 PO (12:25)
[2018-04-28] MEDS ORDERED: NEOM1OIN6 TP (12:26)
[2018-04-28] MEDS ORDERED: THIA100T2 PO (12:27)
[2018-04-28] MEDS ORDERED: BISA-229 PO (12:28)
[2018-04-28] MEDS ORDERED: IBUP-1671 PO (12:29)
[2018-04-28] MEDS ORDERED: MENT7.5L3 MM (12:29)
[2018-04-28] MEDS ORDERED: ACET500T68 PO (12:30)
[2018-04-28 13:16] VITALS: BP 138/78
[2018-04-28] MEDS: ACETAMINOPHEN 500 MG TAB PO PRN (17:40)
--- NOTE | 2018-04-29 21:47 | DISCHARGE SUMMARY ---
DATE OF ADMISSION: April 25, 2018 DATE OF DISCHARGE: April 28, 2018 Patient was seen approximately 0900 hours on the a.m. of 28 April 2018 for note concerning this dictation. FINAL DIAGNOSES 1. Persisting depressive disorder, rule out posttraumatic stress disorder. 2. Supportive relationship with . 3. Delirium secondary to unintentional overdose and probable postictal state, resolved. 4. Chronic pain. 5. History of sleep apnea, untreated. 6. Current exfoliative process of unknown etiology and healing. 7. Pulmonary nodule of unknown etiology. 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 She lives with her out of their semi truck. Please see H and P for full details. Patient was initially admitted after found her unresponsive and later confused. Patient was brought to the Medical Floor where she was observed for two days until medically cleared. Patient still having hallucinations and delirium at this time. She was, therefore, transferred to [facility] for further evaluation. Patient continued to slowly clear. Patient indicating overall that everything is going well in her life. It appeared that patient may have taken baclofen to slight excess in the absence or reduced dose of Neurontin. This may have induced a seizure. Patient continued to improve on the unit. Again, any state of delirium continued to resolve. Patient's monitored patient's condition as well until she had returned to baseline. Patient's and she agreed to depart hospital and continue followup care in the [facility] as, again, they have been living out of their semi truck and have no home of permanent residence. Patient very cooperative on the unit. No parasuicidal or aggressive actions were seen. PHYSICAL EXAMINATION Please see emergency room note and medical floor notes. At time of admission, these were notable for: GENERAL: A 57-year-old female, altered mental status, somewhat disheveled at time of admission. However, this quickly improved on the unit. VITAL SIGNS: Vital signs at time of admission, temperature 98.8, pulse 117, respiratory rate 16, blood pressure 145/66, and pulse oximetry 90% on room air. Vital signs at time of departure from Behavioral Health Unit, temperature 98.9 , pulse 76, respiratory rate 16, blood pressure 138/78, and pulse oximetry 96% on room air. LABORATORY DATA On April 25, 2018, urinalysis was remarkable for small urine blood; otherwise, unremarkable. CBC on April 25, 2018, overall unremarkable. RBCs slightly low at 4.03. Chemistry panel notable for AST and ALT elevated at 66 and 78 on April 25, 2018; otherwise, unremarkable. Toxicology screen upon admission negative with an undetectable serum alcohol level. Please see electronic record for further laboratory data. MENTAL STATUS EXAMINATION AT TIME OF DISCHARGE GENERAL APPEARANCE, BEHAVIOR, AND ATTITUDE: This is a well-groomed, 57-year- old female interacting well with this provider and other treatment team staff. No evidence of delirium existed. Patient making good eye contact. No periods of tearfulness. No bizarre mannerisms or tics. No psychomotor agitation or retardation. SPEECH: Within normal limits. Regular rate, rhythm, volume, and tone. MOOD: Described as improved, good. AFFECT: Full and mood congruent. THOUGHT PROCESSES: Goal directed, logical. No loose associations or flight of ideas. THOUGHT CONTENT: Free of auditory or visual hallucinations, ideas of reference , thought broadcasting, delusions, obsessions, compulsions. Adamantly denying suicidal or homicidal ideations. SENSORIUM: Clear. COGNITION: Alert and oriented to person, place, time, and situation. MEMORY: Immediate, recent, and remote estimated intact. INTELLIGENCE: Average based on interview. INSIGHT AND JUDGMENT: Considered grossly intact and appropriate for ongoing outpatient management. RESULTS OF TESTING IMAGING: Please note that cervical spine imaging was notable only for expected postoperative changes. Please see electronic record. CT of the head was unremarkable. Chest x-ray did show a small nodule of unknown etiology at this time. CONSULTATIONS None. TREATMENT Patient received medications, participated in individual and group therapy. HOSPITAL COURSE Patient admitted to Medicine in a state of confusion, delirium, and postictal state. Patient medically cleared, brought to Behavioral Health Floor as patient 's illusions and hallucinations continued. Patient continued to improve on Behavior Health Floor until all associated conditions had resolved. Patient very cooperative and polite throughout her stay. CONDITION OF PATIENT ON DISCHARGE Stable, considered minimal risk to herself or others, and appropriate for ongoing outpatient management. DISPOSITION Patient discharged to home. Again, she and her live out of truck, over- the-road truck drivers. They have no permanent residence. Patient and her reported they would like to continue to follow up in the [facility] on their way through from time to time. Patient would follow up with primary care provider for low O2 sats at night. Patient was given 2L oxygen at night until sleep study could be arranged. Patient was placed on Augmentin for exfoliative processes of unknown etiology. Patient indicated an understanding that she would stop Augmentin if any loose stools developed. The patient would follow up with primary care again for the pulmonary nodule of unknown etiology. It is recommended if no previous x-rays are available for review, that a CT scan is in order to further evaluate the nodule, and she would repeat imaging in three months or sooner if symptoms develop. Patient would follow up with mental health here in the [facility] as scheduled as well. She was given the crisis line should symptoms return, and she would take medications as prescribed. DISCHARGE MEDICATIONS At time of discharge, patient could take: 1. Tylenol 1000 mg every six hours as needed for pain. 2. Patient would remain on Augmentin 875 mg one tablet at breakfast and supper for 10 days, but would, again, stop if diarrhea developed. 3. Patient could take Dulcolax as needed for constipation. 4. Celebrex 200 mg daily. 5. Lexapro, she would remain on 5 mg tablets for one week and then take 10 mg q.a.m. after that and continue until seen by outpatient provider. 6. Folic acid 1 mg daily. 7. Gabapentin 600 mg orally three times a day. 8. Ibuprofen 600 mg every eight hours as needed for pain. 9. Melatonin over the counter orally at bedtime. 10. Thiamine 100 mg daily. 11. The patient could continue to use Neosporin ointment on exfoliative lesions. Risks, benefits, and alternatives of above discharge plan were discussed. Informed consent was given to proceed with above discharge plan by this competent patient and patient's present at time of discharge. Crisis line was given should symptoms return. MTDD
== END 2018-04-28 17:50 | disposition home or self-care (01) | DRG 881 ==
LOC: BHS 11:15
PROVIDERS: ADMIT Psychiatry & Neurology Psychiatry; ATTEND Psychiatry & Neurology Psychiatry
PROC: 0HDNXZZ Extraction of Left Foot Skin, External Approach (ICD-10-PCS; principal; 2018-04-26)
PROC: 0JDJ3ZZ Extraction of Right Hand Subcutaneous Tissue and Fascia, Percutaneous Approach (ICD-10-PCS; 2018-04-26)
PROC: 0HDMXZZ Extraction of Right Foot Skin, External Approach (ICD-10-PCS; 2018-04-26)
PROC: 0JDJ3ZZ Extraction of Right Hand Subcutaneous Tissue and Fascia, Percutaneous Approach (ICD-10-PCS; 2018-04-26)
PROC: 0HDFXZZ Extraction of Right Hand Skin, External Approach (ICD-10-PCS; 2018-04-26)
PROC: 0HDNXZZ Extraction of Left Foot Skin, External Approach (ICD-10-PCS; 2018-04-28)
PROC: 0JDJ3ZZ Extraction of Right Hand Subcutaneous Tissue and Fascia, Percutaneous Approach (ICD-10-PCS; 2018-04-28)
PROC: 0JDJ3ZZ Extraction of Right Hand Subcutaneous Tissue and Fascia, Percutaneous Approach (ICD-10-PCS; 2018-04-28)
PROC: 0JDQ3ZZ Extraction of Right Foot Subcutaneous Tissue and Fascia, Percutaneous Approach (ICD-10-PCS; 2018-04-28)
PROC: 0HDMXZZ Extraction of Right Foot Skin, External Approach (ICD-10-PCS; 2018-04-28)
PROC: 0HDFXZZ Extraction of Right Hand Skin, External Approach (ICD-10-PCS; 2018-04-28)
DX: F34.1 Dysthymic disorder (principal); T42.8X1A Poisoning by antiparkinsonism drugs and other central muscle-tone depressants, accidental (unintentional), initial encounter; G89.29 Other chronic pain; G47.30 Sleep apnea, unspecified; R91.1 Solitary pulmonary nodule; R44.1 Visual hallucinations; T42.6X6A Underdosing of other antiepileptic and sedative-hypnotic drugs, initial encounter; S91.302A Unspecified open wound, left foot, initial encounter; S60.410A Abrasion of right index finger, initial encounter; S60.412A Abrasion of right middle finger, initial encounter; S90.812A Abrasion, left foot, initial encounter; S90.811A Abrasion, right foot, initial encounter; S00.81XA Abrasion of other part of head, initial encounter; F32.9 Major depressive disorder, single episode, unspecified; Z91.5 Personal history of self-harm; Z91.138 Patient's unintentional underdosing of medication regimen for other reason; Z98.1 Arthrodesis status
CPT/HCPCS: 81001; 93005

== ENCOUNTER → 2018-06-05 | Outpatient (CLI) | payer BC ==
[2018-04-23 10:28] VITALS: BMI 11.8
[~2018-06-05] MED LIST changes: +ACET500T68 PO; +AMOX-559 PO; +BISA-229 PO; +ESCI20TA38 PO; +FOLI-68 PO; +IBUP-1671 PO; +MELA3TAB31 PO; +MENT7.5L3 MM; +NEOM1OIN6 TP; +THIA100T2 PO
== END ==
LOC: RESP 20:43
PROVIDERS: ATTEND Psychiatry & Neurology Psychiatry
DX: G47.30 Sleep apnea, unspecified (principal); G47.61 Periodic limb movement disorder; G47.36 Sleep related hypoventilation in conditions classified elsewhere